=== PATIENT | female | born 1975 | race Caucasian/White ===

== ENCOUNTER 2017-03-12 20:31 | Emergency (ER) | payer OTHER ==
[~2017-03-12 20:31] MED LIST: BACTRIM DS TABL1 TA1 PO; CIPRO PO; FLAGYL PO; HYDROCODON-ACE1 EAC1 PO; HYDROCODONE-APA1 T30 PO; IBUPROFEN800 MG PO; KEFLEX PO; KEFLEX500 MG PO; LEXAPRO PO; LORTAB 5/500 TA1 TA1 PO; LORTAB 5/500 TA1 TA2 PO; LORTAB 7.5-5001 TAB PO; MOTRIN600 MG PO; NAPROSYN500 MG PO; NO MEDICATIONS; OXECTA7.5 MG PO; PHENERGAN25 M1 PO; ZANAFLEX2 M2 PO; ZOFRAN ODT4 MG PO
[2017-07-29] MEDS ORDERED: NO MEDICATIONS (00:49)
== END 2017-03-12 21:15 | disposition home or self-care (01) ==
LOC: SED 20:31
DX: J01.00 Acute maxillary sinusitis, unspecified (principal); R03.0 Elevated blood-pressure reading, without diagnosis of hypertension; F17.210 Nicotine dependence, cigarettes, uncomplicated; F41.9 Anxiety disorder, unspecified
CPT/HCPCS: 87651; 99283